=== PATIENT | male | born 1980 | race Caucasian/White ===

== ENCOUNTER 2017-10-28 09:00 | Inpatient (IN) | payer OTHER ==
[~2017-10-28] VITALS: Ht 162.6 cm; Wt 77.1 kg
[2017-11-04] MEDS ORDERED: PERCOCET 5-3251 EACH PO (13:31)
[2017-11-04] MEDS ORDERED: INTESTINEX680 M1 PO (13:31)
[2017-11-04] MEDS ORDERED: ZOLPIDEM TARTRA10 MG PO (13:32)
== END 2017-11-04 14:19 | disposition home or self-care (01) | DRG 330 ==
LOC: O/R 10-31 08:31 → SURH 10-31 08:31 → O/R 10-31 09:00 → SURH 10-31 15:28
PROVIDERS: Surgery
PROC: 0DTP4ZZ Resection of Rectum, Percutaneous Endoscopic Approach (ICD-10-PCS; 2017-10-31)
PROC: 0DJD8ZZ Inspection of Lower Intestinal Tract, Via Natural or Artificial Opening Endoscopic (ICD-10-PCS; 2017-10-31)
PROC: 0W3P8ZZ Control Bleeding in Gastrointestinal Tract, Via Natural or Artificial Opening Endoscopic (ICD-10-PCS; 2017-10-31)
PROC: 0DTN4ZZ Resection of Sigmoid Colon, Percutaneous Endoscopic Approach (ICD-10-PCS; principal; 2017-10-31 14:00)
DX: K57.32 Diverticulitis of large intestine without perforation or abscess without bleeding (principal); K91.840 Postprocedural hemorrhage of a digestive system organ or structure following a digestive system procedure; D62 Acute posthemorrhagic anemia; F98.8 Other specified behavioral and emotional disorders with onset usually occurring in childhood and adolescence; F17.210 Nicotine dependence, cigarettes, uncomplicated